=== PATIENT | female | born 1975 | race Caucasian/White ===

== ENCOUNTER 2021-01-25 00:53 | Inpatient (IN) | payer BC ==
[~2021-01-25] VITALS: Ht 162.6 cm; Wt 71.2 kg
[2021-01-25 01:03] VITALS: BP 190/107
[2021-01-25 01:42] LABS: URINE BILIRUBIN NEGATIVE (Negative); URINE BLOOD 1+ (Negative); URINE CLARITY CLEAR; URINE COLOR STRAW; URINE GLUCOSE-RANDOM NEGATIVE (Negative); URINE KETONES NEGATIVE (Negative); URINE LEUKOCYTES-REFLEX NEGATIVE (Negative); URINE NITRITE-REFLEX NEGATIVE (Negative); URINE PROTEIN NEGATIVE (Negative); URINE UROBILINOGEN 0.2 E.U./dl (0.2-1.0)
[2021-01-25 01:50] LABS: ABSOLUTE EOSINOPHILS 0.1 thou/uL (0.0-0.7); ABSOLUTE LYMPHOCYTES 1.5 thou/uL (0.8-5.3); ABSOLUTE NEUTROPHILS 12.6 thou/uL (1.6-8.1); BASOPHILS 0.3 %; HEMATOCRIT 41.6 % (37.0-47.0); HEMOGLOBIN 13.9 gm/dL (12.0-15.0); LYMPHOCYTES 10.1 %; MCHC 33.3 g/dL (28.0-37.0); MCV 93.2 fL (80.0-100.0); MONOCYTES 6.4 %; MPV 6.4 fl. (7.2-11.1); NUCLEATED RBCS 0 /100WBC; PLATELET COUNT* 365 thou/uL (150-400); POLYS 82.2 %; RBC 4.46 mil/uL (4.20-5.00); RDW-CV 13.9 % (10.5-14.5); WBC 15.3 thou/uL (4.0-11.0)
[2021-01-25 01:59] LABS: CASTS None Seen /LPF (None Seen); CRYSTALS None Seen /LPF (None Seen); MUCUS 4-6 Moderate strn/LPF (None Seen); SQUAMOUS 4-10 Moderate /LPF (0-3); URINE RBC 3-10 Few /HPF (0-2); URINE WBC-REFLEX None Seen /HPF (0-5)
[2021-01-25 02:04] LABS: CALCIUM 8.4 mg/dL (8.5-10.1); CREATININE 0.9 mg/dL (0.6-1.3); POTASSIUM 3.7 mmol/L (3.5-5.1)
[2021-01-25 02:09] LABS: ALBUMIN 3.8 g/dL (3.4-5.0); TOTAL BILIRUBIN 0.3 mg/dL (<0.1-1.0); TOTAL PROTEIN 7.7 g/dL (6.4-8.2)
[2021-01-25 08:32] VITALS: BP 183/97
[2021-01-25 08:59] LABS: CHOLESTEROL 144 mg/dL (<200); HDL CHOLESTEROL 72 mg/dL (>40); LDL CHOLESTEROL 28 mg/dL (<100); SERUM ASSESSMENT Clear; TRIGLYCERIDE 224 mg/dL (<150); VLDL 45 mg/dL (<40)
[2021-01-25 12:00] VITALS: BP 148/85
--- NOTE | 2021-01-25 14:58 | NUR ---
HEPARIN STOPPED AT THIS TIME PER HERE FOR STRESS TEST PREP.
[2021-01-25 15:28] VITALS: BP 165/87
--- NOTE | 2021-01-25 17:07 | EKG ---
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[id number] Requested By: Annmarie Villalta Order Number: [id number] MD: Geovani Campos Measurements Intervals [place] Rate: 102 P: 31 FL: 160 QRS: 37 QRSD: 72 T: 84 QT: 379 QTc: 494 Interpretive Statements Sinus tachycardia Probable left atrial enlargement Probable left ventricular hypertrophy Borderline prolonged QT interval No previous ECG available for comparison Electronically Signed On 01-25-2021 17:07:11 CDT by Geovani Campos [email or web address] <ELECTRONICALLY SIGNED> By: Geovani Campos MD, [facility] 01/25/21 1707 2 2 Geovani Campos MD, [facility] /EPI
--- NOTE | 2021-01-25 17:08 | EKG ---
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 : 1975 Requested By: Annmarie Villalta Order Number: [id number] MD: Geovani Campos Measurements Intervals [place] Rate: 105 P: -5 AR: 150 QRS: 25 QRSD: 82 T: 84 QT: 389 QTc: 515 Interpretive Statements Sinus tachycardia Probable left atrial enlargement Probable left ventricular hypertrophy Prolonged QT interval Compared to ECG 01/25/2021 01:03:36 No significant changes Electronically Signed On 01-25-2021 17:08:09 CDT by Geovani Campos [email or web address] <ELECTRONICALLY SIGNED> By: Geovani Campos MD, [facility] 01/25/21 1708 0452 0452 Geovani Campos MD, [facility] /EPI
--- NOTE | 2021-01-25 17:53 | CARDNUC ---
[place] [address] CARDIAC NUCLEAR IMAGING REPORT Name: CHELSI RANDOLPH Room: [place] [address] ADM IN [facility]#: [id number] Admission: 01/25/21 Attend Phys: Alexei Krishna Discharge: Date of : 71 Date of Service: 01/25/21 1753 Report #: [id number] THIS REPORT FOR: cc: FAM - No family physician/PCP FAM - No family physician/PCP Benjamín Alvarez MD [facility] ~ APPROVED REPORT Study performed: 01/25/2021 16:31:24 Exam: Nuclear Stress Test Indication: Chest pain Patient Location: In-Patient Stress Nurse: Neena Rodriguez RN ID Tech:ADDIE Cuevas Ht: 5 ft 4 in Wt: 163 lbs BSA: 1.79 m2 HR: 98 bpm BP: 153/102 mmHg BMI: 27.97 Rhythm: NSR Medical History Allergies: pcn Cardiac Risk Factors: Age, Tobacco History (Former), FHX of CAD Stress Test Details Stress Test: Pharmacologic stress testing performed using 0.4 mg of regadenoson per 5 mL given IV over 10 seconds. HR Resting HR: 98 bpm Max Heart Rate (APMHR): 172 bpm Max HR Achieved: 130 bpm Target HR (85% APMHR): 146 bpm % of APMHR: 75 Recovery HR: 121 bpm HR response to stress: Normal HR response to stress BP Resting BP: 153/102 mmHg Max BP: 122/91 mmHg BP response to stress: [place] [address] CARDIAC NUCLEAR IMAGING REPORT Name: CHELSI RANDOLPH Room: [address] IN [facility]#: [id number] Admission: 01/25/21 Attend Phys: Alexei Krishna Discharge: Date of : 71 Date of Service: 01/25/21 1753 Report #: [id number] Resting ECG: Sinus Rhythm Stress ECG: Sinus Tachycardia ST Change: Upsloping ST depression Maximum ST Deviation: 0.5 mm Arrhythmia: None Recovery ECG: Sinus Tachycardia Recovery ST Change: Upsloping ST depression Recovery ST Deviation: 0.5 mm Recovery Arrhythmia: None Clinical Reason for Termination: Completed protocol Stress Symptoms: None Patient noted abdominal pain throughout the testing phase. The patient received adenosine without significant chest pain. Stress ECG Conclusion Baseline twelve-lead EKG shows sinus rhythm without significant ST segment abnormality. EKGs obtained during and post Lexiscan infusion show sinus rhythm and sinus tachycardia with 0.[address] segment depression. There were no stress-induced arrhythmias identified. NM EXAM: Myocardial Perfusion REST/STRESS Imaging Protocol: Rest Tc-99m/Stress Tc-99m 1 day Resting Data Rest SPECT myocardial perfusion imaging was performed in supine position 30 minutes following the intravenous injection of 10.7 mCi of Tc-99m Sestamibi. Time of rest injection: 1500 Date: 01/25/2021 The images were gated to evaluate regional wall motion and calculate left ventricular ejection fraction. Administration Route: IV Pharmacologic Stress Pharmacologic stress test was performed by injecting Regadenoson 0.4 mg IV push followed by the intravenous injection of 35.2 mCi of Tc-99m Sestamibi. Time of stress injection: 1630 Date: 01/25/2021 Administration Route: IV Gated Stress SPECT was performed 40 minutes after stress injection. The images were gated to evaluate regional wall motion and calculate left ventricular ejection fraction. [place] [address] CARDIAC NUCLEAR IMAGING REPORT Name: AGUSTÍNCHRISTELCHELSI YOLANDA Room: [address] IN [facility].#: [id number] Admission: 01/25/21 Attend Phys: Alexei Krishna Discharge: Date of : 71 Date of Service: 01/25/21 1753 Report #: [id number] Study Quality Study: Fair Artifact: Moderate Breast artifact Study Data At rest, the left ventricular ejection fraction was 66%.. Post stress, the left ventricular ejection was 82%.. TID = 0.86. Perfusion Perfusion images obtained in the supine position at rest and post Lexiscan stress show a moderate region of photopenia in the mid anterior wall that resolves for the most part with post-rest prone imaging suggesting breast attenuation artifact. No significant fixed or reversible defects are identified. Wall Motion Gated study is technically inadequate for assessment of left ventricular wall motion or function. Recommend echocardiographic follow-up. Nuclear Conclusion ECG Findings: negative for ischemia Clinical Findings: negative for ischemia Nuclear Findings: negative for ischemia Exercise Capacity: not assessed Perfusion images show significant breast attenuation artifact that resolves with most part with post-rest prone imaging. Gated studies were not technically adequate for interpretation of LV systolic function or wall motion. This is not a high risk study. Recommend echocardiographic follow-up. <Conclusion> Baseline twelve-lead EKG shows sinus rhythm without significant ST segment abnormality. EKGs obtained during and post Lexiscan infusion show sinus rhythm and sinus tachycardia with 0.[address] segment depression. There were no stress-induced arrhythmias identified. <ELECTRONICALLY SIGNED> By: Benjamín Alvarez MD, FACC 01/25/21 [phone] Benjamín Alvarez MD, FACC /INF
[2021-01-25 19:15] VITALS: BP 151/87
[2021-01-25 23:27] VITALS: BP 148/70
[2021-01-26] VITALS (8 sets, daily range): BP systolic 144–195; BP diastolic 70–110
--- NOTE | 2021-01-26 07:25 | NUR ---
PT ADMISSION HX AND ASSESSMENT COMPLETED; PT WITH MINIMAL PROGRESSION TOWARDS GOAL; PT CONTINUES TO REPORT PAIN IS 7-10; RECEIVED PRN MORPHINE AND VICODIN WITH MINIMAL RELIEF HEAT PAD APPLIED; PT RECEIVED PRN NAUSE MEDS; PT BP IMPROVED WITH IV HYDRALIZINE; REPORT GIVEN TO ISIDORO AQUINO; CALL AMIRA LOPEZ WILL CONTINUE TO MONITOR.
--- NOTE | 2021-01-26 08:00 | NUR ---
ASSUMED CARE OF PT. PLEASE SEE DOCUMENTED ASSESSMENT. PT IS AXOX4. ROOM AIR. PT STATES SHE HAS 4/10 DULL PAIN IN HER ABDOMEN GENERALIZED. PT STATES THE NORCO HELPED HER PAIN, SHE DOES NOT NEED ANY NORCO AT THIS TIME. PT IS NPO EXCEPT SIPS OF WATER W/MEDS. PLAN IS TO HAVE GI CONSULT. WILL CONTINUE TO MONITOR PT CLOSELY.
--- NOTE | 2021-01-26 11:00 | NUR ---
DR. CHEEK HERE ON THE UNIT. PLAN FOR PT TO BE DISCHARGED TODAY AFTER HER ECHO. PT AGREEABLE W/PLAN OF CARE.
[2021-01-26] MEDS ORDERED: HYDROCODON-ACE1 EAC7 PO (11:44)
[2021-01-26] MEDS ORDERED: LISINOPRIL5 MG PO (11:44)
[2021-01-26] MEDS ORDERED: PROTONIX40 M2 PO (11:57)
[2021-01-26] MEDS ORDERED: PHENERGAN 25 MG25 M1 PO (11:57)
--- NOTE | 2021-01-26 13:45 | NUR ---
RADAR SCIENTIST HERE FOR ECHOCARDIOGRAM.
--- NOTE | 2021-01-26 14:59 | NUR ---
ECHO COMPLETE. PT GIVEN D/C INSTRUCTIONS EARLIER BY KENIA LEUNG. PT AND SPOUSE VERBALIZED UNDERSTANDING. PT TAKE OUT TO FAMILY CAR VIA W/CHAIR FOR D/CHARGE HOME TO SELF CARE.
--- NOTE | 2021-01-26 15:44 | 2DMMODE ---
[place] [address] 2 D/M-MODE ECHOCARDIOGRAM Name: CHELSI RANDOLPH Room: [address] IN [place].#: [id number] Admission: 01/25/21 Attend Phys: Alexei Krishna Discharge: 01/26/21 Date of : 71 Date of Service: 01/26/21 1543 Report #: [id number] THIS REPORT FOR: cc: NANCI - No family physician/PCP NANCI - Annette family physician/PCP Geovani Campos MD [facility] ~ APPROVED REPORT Study performed: 01/26/2021 13:21:38 EXAM: Comprehensive 2D, Doppler, and color-flow Echocardiogram Patient Location: In-Patient Room #: PACU BSA: 1.76 HR: 96 bpm BP: 144/78 mmHg Other Information Study Quality: Good Indications Elevated Troponin 2D Dimensions IVSd: 10.96 (7-11mm) LVOT Diam: 19.39 (18-24mm) LVDd: 41.01 mm PWd: 10.65 (7-11mm) Ascending Ao: 23.27 (22-36mm) LVDs: 28.54 (25-40mm) Aortic Root: 29.01 mm Volumes Left Atrial Volume (Systole) LA ESV Index: 12.50 mL/m2 Aortic Valve AoV Peak Anjel.: 1.63 m/s AO Peak Gr.: 10.57 mmHg LVOT Max P.87 mmHg AO Mean Gr.: 5.13 mmHg LVOT Mean P.41 mmHg LVOT Max V: 1.10 m/s AO V2 VTI: 23.46 cm LVOT Mean V: 0.71 m/s IMKE (VTI): 2.35 cm2 LVOT V1 VTI: 18.69 [place] [address] 2 D/M-MODE ECHOCARDIOGRAM Name: CHELSI RANDOLPH Room: [address]#: [id number] Admission: 01/25/21 Attend Phys: Alexei Krishna Discharge: 01/26/21 Date of : 71 Date of Service: 01/26/21 1543 Report #: [id number] E/A Ratio: 1.16 MV Decel. Time: 198.91 ms MV E Max Anjel.: 0.89 m/s MV PHT: 57.68 ms MVA (PHT): 3.81 cm2 TDI E/Lateral E': 12.71 E/Medial E': 9.89 Medial E' Anjel.: 0.09 m/s Lateral E' Anjel.: 0.07 m/s Pulmonary Valve PV Peak Anjel.: 1.04 m/s PV Peak Gr.: 4.34 mmHg Tricuspid Valve RAP Estimate: 5.00 mmHg TR Peak Gr.: 37.95 mmHg RVSP: 42.95 mmHg PA Pressure: 42.95 mmHg Left Ventricle The left ventricle is normal size. There is normal LV segmental wall motion. Mild concentric left ventricular hypertrophy. The left ventricular systolic function is normal. LVEF is 60%. Grade I - abnormal relaxation pattern. Right Ventricle The right ventricle is normal size. The right ventricular systolic function is normal. Atria The left atrium size is normal. The right atrium size is normal. Aortic Valve The aortic valve is normal in structure. No aortic regurgitation is present. There is no aortic valvular stenosis. Mitral Valve The mitral valve is normal in structure. There is no mitral valve regurgitation noted. No evidence of mitral valve stenosis. Tricuspid Valve The tricuspid valve is normal in structure. Mild tricuspid regurgitation. Mild pulmonary hypertension[place] [address] 2 D/M-MODE ECHOCARDIOGRAM Name: CHELSI RANDOLPH Room: [address]#: [id number] Admission: 01/25/21 Attend Phys: Alexei Krishna Discharge: 01/26/21 Date of : 71 Date of Service: 01/26/21 1543 Report #: [id number] The pulmonary valve is normal in structure. There is no pulmonic valvular regurgitation. Great Vessels The aortic root is normal in size. IVC is normal in size and collapses >50% with inspiration. Pericardium There is no pericardial effusion. <Conclusion> The left ventricle is normal size. Mild concentric left ventricular hypertrophy. The left ventricular systolic function is normal. LVEF is 60%. Grade I - abnormal relaxation pattern. The right ventricle is normal size. The left atrium size is normal. The aortic valve is normal in structure. The mitral valve is normal in structure. The tricuspid valve is normal in structure. Mild tricuspid regurgitation. Mild pulmonary hypertension. IVC is normal in size and collapses >50% with inspiration. There is no pericardial effusion. There is normal LV segmental wall motion. <ELECTRONICALLY SIGNED> By: Geovani Campos MD, FACC 01/26/21 1543 1543 1543 Geovani Campos MD, FACC /INF
== END 2021-01-26 15:00 | disposition home or self-care (01) | DRG 760 ==
LOC: M.ERS 00:53 → M.TBA-ER 05:05
PROVIDERS: Personal Emergency Response Attendant; Registered Nurse; ADMIT Internal Medicine; ATTEND Internal Medicine
DX: N83.202 Unspecified ovarian cyst, left side (principal); I21.4 Non-ST elevation (NSTEMI) myocardial infarction; D72.829 Elevated white blood cell count, unspecified; I10 Essential (primary) hypertension; E78.1 Pure hyperglyceridemia; K21.9 Gastro-esophageal reflux disease without esophagitis; Z20.822 Contact with and (suspected) exposure to COVID-19; Z88.0 Allergy status to penicillin; Z87.891 Personal history of nicotine dependence; Z82.49 Family history of ischemic heart disease and other diseases of the circulatory system; Z88.8 Allergy status to other drugs, medicaments and biological substances

== ENCOUNTER 2021-03-04 10:42 | Emergency (ER) | payer BC ==
[~2021-03-04] VITALS: Ht 162.6 cm; Wt 68.0 kg
[~2021-03-04 10:42] MED LIST: HYDROCODON-ACE1 EAC7 PO; LISINOPRIL5 MG PO; PHENERGAN 25 MG25 M1 PO; PROTONIX40 M2 PO
[2021-03-04] MEDS ORDERED: PRINIVIL20 MG (10:51)
[2021-03-04] MEDS ORDERED: HYDROCHLOROTH12.5 M2 PO (10:52)
[2021-03-04 11:15] LABS: ABSOLUTE EOSINOPHILS 0.1 thou/uL (0.0-0.7); ABSOLUTE LYMPHOCYTES 1.8 thou/uL (0.8-5.3); ABSOLUTE NEUTROPHILS 8.3 thou/uL (1.6-8.1); BASOPHILS 0.4 %; EOSINOPHILS 0.6 %; HEMATOCRIT 41.9 % (37.0-47.0); HEMOGLOBIN 14.2 gm/dL (12.0-15.0); LYMPHOCYTES 15.8 %; MCH 31.2 pg (26.0-34.0); MCHC 33.9 g/dL (28.0-37.0); MCV 91.9 fL (80.0-100.0); MONOCYTES 8.9 %; MPV 6.5 fl. (7.2-11.1); NUCLEATED RBCS 0 /100WBC; PLATELET COUNT* 469 thou/uL (150-400); POLYS 74.3 %; RBC 4.56 mil/uL (4.20-5.00); RDW-CV 13.8 % (10.5-14.5); WBC 11.1 thou/uL (4.0-11.0)
[2021-03-04 11:36] LABS: CALCIUM 10.1 mg/dL (8.5-10.1); CREATININE 1.2 mg/dL (0.6-1.3); POTASSIUM 3.9 mmol/L (3.5-5.1)
[2021-03-04 11:45] LABS: ALBUMIN 4.7 g/dL (3.4-5.0); TOTAL BILIRUBIN 0.8 mg/dL (<0.1-1.0); TOTAL PROTEIN 8.3 g/dL (6.4-8.2)
[2021-03-04] MEDS ORDERED: VISTARIL 25 MG25 M1 PO (11:51)
[2021-03-04] MEDS ORDERED: AMBIEN 5 MG TABL5 M1 PO (11:51)
[2021-03-04 12:03] VITALS: BP 130/76
--- NOTE | 2021-03-05 11:19 | EKG ---
[place] [address] ELECTROCARDIOGRAM REPORT Name: CHELSI RANDOLPH Room: 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1975 Requested By: Elayne Valentine Order Number: [id number] MD: Joe Levy Measurements Intervals [place] Rate: 107 P: 30 AR: 141 QRS: 29 QRSD: 87 T: -13 QT: 356 QTc: 475 Interpretive Statements Sinus tachycardia Probable left atrial enlargement Borderline repolarization abnormality Compared to ECG 01/25/2021 04:52:32 Prolonged QT interval no longer present Electronically Signed On 03-05-2021 11:19:15 CDT by Joe Levy [email or web address] <ELECTRONICALLY SIGNED> By: Joe Levy MD, [facility] 03/05/21 1119 1047 1047 Joe Levy MD, [facility] /EPI
== END 2021-03-04 12:07 | disposition home or self-care (01) ==
LOC: M.ERS 10:42
PROVIDERS: Physician Assistant
DX: R00.2 Palpitations (principal); Z90.49 Acquired absence of other specified parts of digestive tract; Z98.890 Other specified postprocedural states; Z79.891 Long term (current) use of opiate analgesic; Z79.899 Other long term (current) drug therapy; Z88.0 Allergy status to penicillin; Z91.018 Allergy to other foods; Z87.891 Personal history of nicotine dependence